=== PATIENT | female | born 1980 | race Two or more races ===

== ENCOUNTER 2023-11-30 09:05 | Inpatient (IN) | payer OTHER ==
[~2023-11-30] VITALS: Ht 167.6 cm; Wt 71.7 kg
[2023-11-30] MEDS ORDERED: INTEGRA PLUS C1 EACH PO (10:36)
[2023-11-30] MEDS ORDERED: METRONIDAZOLE500 MG PO (10:37)
[2023-11-30] MEDS ORDERED: MULTIPLE VITAM1 EAC2 PO (10:38)
[2023-11-30 10:41] VITALS: BP 113/77
[2023-11-30 11:16] LABS: RH POSITIVE
[2023-12-04] MEDS ORDERED: POVIDONE-IODINE 118 ML BOTT TOP ONE (14:45)
[2023-12-04] MEDS ORDERED: CEFAZOLIN SODIUM 1,000 MG VIAL IV ONE (14:45)
[2023-12-04] MEDS ORDERED: CEFTRIAXONE SODIUM 1,000 MG VIAL IV SCH (16:07)
[2023-12-04] MEDS ORDERED: MORPHINE SULFATE 4 MG/ML VIAL IV PRN (16:15)
[2023-12-04] MEDS ORDERED: RINGERS SOLUTION,LACTATED 1,000 ML IV SCH (16:15)
[2023-12-04] MEDS ORDERED: ONDANSETRON HCL 2 MG/ML VIAL IV PRN (16:15)
[2023-12-04] MEDS ORDERED: MORPHINE SULFATE 4 MG,MORPHINE SULFATE 2 MG IV PRN (16:30)
[2023-12-04] MEDS ORDERED: MORPHINE SULFATE 4 MG/ML VIAL IV ONE ×2 (16:35→17:05)
[2023-12-04] MEDS ORDERED: ONDANSETRON HCL 2 MG/ML VIAL IV ONE (16:45)
[2023-12-04] MEDS ORDERED: METRONIDAZOLE/SODIUM CHLORIDE 500 MG/100 ML PIGGYBACK IV SCH (17:00)
[2023-12-04 20:05] LABS: HEMATOCRIT 31.5 % (36.0-45.00); HEMOGLOBIN 10.3 g/dL (12.0-15.00); MEAN CELL VOLUME 77.5 fL (80.00-100.00); MEAN CORPUSCULAR HEMOGLOBIN 25.3 pg (27.00-32.0); MEAN CORPUSCULAR HGB CONC 32.6 g/dl (32.0-36.0); PLATELET COUNT 200 K/uL (150-450); RED BLOOD COUNT 4.07 M/uL (4.00-6.00); RED CELL DISTRIBUTION WIDTH 17.1 % (11.5-14.5)
[2023-12-04 22:05] VITALS: BP 140/82
[2023-12-05] VITALS: BP 143/87
[2023-12-05] MEDS ORDERED: GABAPENTIN 300 MG CAPSULE PO PRN (07:15)
[2023-12-05] MEDS ORDERED: ACETAMINOPHEN 500 MG GEL..CAP PO PRN (07:15)
[2023-12-05 08:00] VITALS: BP 128/78
[2023-12-05 08:21] LABS: HEMATOCRIT 30.1 % (36.0-45.00); HEMOGLOBIN 9.8 g/dL (12.0-15.00); MEAN CELL VOLUME 77.1 fL (80.00-100.00); MEAN CORPUSCULAR HEMOGLOBIN 25.2 pg (27.00-32.0); MEAN CORPUSCULAR HGB CONC 32.7 g/dl (32.0-36.0); PLATELET COUNT 221 K/uL (150-450); RED BLOOD COUNT 3.91 M/uL (4.00-6.00); RED CELL DISTRIBUTION WIDTH 16.9 % (11.5-14.5)
[2023-12-05] MEDS ORDERED: ENOXAPARIN SODIUM 40 MG/0.4 ML SYRINGE SUBCUTANEO SCH (09:00)
[2023-12-05 16:00] VITALS: BP 139/80
[2023-12-05] MEDS ORDERED: MAGNESIUM HYDROXIDE 30 ML BLIST.PACK PO ONE (21:15)
[2023-12-05] MEDS ORDERED: BISACODYL 5 MG TABLET.EC PO ONE (21:15)
[2023-12-06 01:30] VITALS: BP 122/74
[2023-12-06] MEDS ORDERED: PAIN RELIEVER500 M2 PO (07:22)
[2023-12-06] MEDS ORDERED: AMOX1TAB5 PO (07:22)
[2023-12-06] MEDS ORDERED: MAXFE CAPLET1 EAC1 PO (07:22)
[2023-12-06] MEDS ORDERED: GABAPENTIN300 MG PO (07:22)
[2023-12-06 08:00] VITALS: BP 134/86
== END 2023-12-06 08:49 | disposition home or self-care (01) | DRG 743 ==
LOC: O/R 12-04 08:50 → OB/GYN 12-04 08:50 → SURG 12-04 10:30 → OB/GYN 12-04 16:45
PROVIDERS: ADMIT Obstetrics & Gynecology Gynecology; ATTEND Obstetrics & Gynecology Gynecology
PROC: 0UT70ZZ Resection of Bilateral Fallopian Tubes, Open Approach (ICD-10-PCS; 2023-12-04)
PROC: 0UT90ZZ Resection of Uterus, Open Approach (ICD-10-PCS; principal; 2023-12-04 12:45)
DX: D25.0 Submucous leiomyoma of uterus (principal); N92.1 Excessive and frequent menstruation with irregular cycle; Z20.822 Contact with and (suspected) exposure to COVID-19

== ENCOUNTER 2023-12-13 10:53 | Emergency (ER) | payer OTHER ==
[~2023-12-13] VITALS: Ht 167.6 cm; Wt 71.7 kg
[~2023-12-13 10:53] MED LIST: AMOX1TAB5 PO; GABAPENTIN300 MG PO; INTEGRA PLUS C1 EACH PO; MAXFE CAPLET1 EAC1 PO; METRONIDAZOLE500 MG PO; MULTIPLE VITAM1 EAC2 PO; PAIN RELIEVER500 M2 PO
[2023-12-13 11:34] VITALS: BP 109/74; O2SAT 100
== END 2023-12-13 15:40 | disposition home or self-care (01) ==
LOC: ER 10:55
DX: M79.604 Pain in right leg (principal)